=== PATIENT | female | born 1980 | race Caucasian/White ===

== ENCOUNTER → 2024-08-06 06:48 | Outpatient (REF) | payer OTHER, SELFPAY | LOC: RAD 06:48 | PROVIDERS: ATTENDING PHYSICIAN Nurse Practitioner Family; FAMILY PHYSICIAN Family Medicine | DX: Z34.90 Encounter for supervision of normal pregnancy, unspecified, unspecified trimester (principal) | CPT/HCPCS: 76801 ==

== ENCOUNTER → 2024-08-30 13:28 | Outpatient (REF) | payer OTHER, SELFPAY | LOC: PNTC 13:28 | PROVIDERS: ATTENDING PHYSICIAN Obstetrics & Gynecology | DX: Z36.0 Encounter for antenatal screening for chromosomal anomalies (principal); Z36.82 Encounter for antenatal screening for nuchal translucency | CPT/HCPCS: 36415; 76801; 76813 ==

== ENCOUNTER → 2024-10-22 14:13 | Outpatient (REF) | payer OTHER, SELFPAY | LOC: PNTC 14:13 | PROVIDERS: ATTENDING PHYSICIAN Obstetrics & Gynecology | DX: O09.529 Supervision of elderly multigravida, unspecified trimester (principal) | CPT/HCPCS: 76811; 76817 ==

== ENCOUNTER → 2024-12-06 14:44 | Outpatient (REF) | payer OTHER, SELFPAY | LOC: PNTC 14:44 | PROVIDERS: ATTENDING PHYSICIAN Obstetrics & Gynecology | DX: O09.529 Supervision of elderly multigravida, unspecified trimester (principal) | CPT/HCPCS: 76816 ==

== ENCOUNTER → 2024-12-20 09:58 | Outpatient (REF) | payer OTHER, SELFPAY | LOC: PNTC 09:58 | PROVIDERS: ATTENDING PHYSICIAN Obstetrics & Gynecology | DX: Z34.80 Encounter for supervision of other normal pregnancy, unspecified trimester (principal) | CPT/HCPCS: 36415; 86850; 86900; 86901; 96372; J2790 ==

== ENCOUNTER → 2025-01-17 14:43 | Outpatient (REF) | payer OTHER, SELFPAY | LOC: PNTC 14:43 | PROVIDERS: ATTENDING PHYSICIAN Obstetrics & Gynecology | DX: O09.529 Supervision of elderly multigravida, unspecified trimester (principal) | CPT/HCPCS: 76816 ==

== ENCOUNTER → 2025-01-31 14:41 | Outpatient (REF) | payer OTHER, SELFPAY | LOC: PNTC 14:41 | PROVIDERS: ATTENDING PHYSICIAN Obstetrics & Gynecology | DX: O09.529 Supervision of elderly multigravida, unspecified trimester (principal) | CPT/HCPCS: 59025 ==

== ENCOUNTER → 2025-02-07 14:46 | Outpatient (REF) | payer OTHER, SELFPAY | LOC: PNTC 14:46 | PROVIDERS: ATTENDING PHYSICIAN Obstetrics & Gynecology | DX: O09.529 Supervision of elderly multigravida, unspecified trimester (principal) | CPT/HCPCS: 59025; 76815 ==

== ENCOUNTER → 2025-02-14 14:36 | Outpatient (REF) | payer OTHER, SELFPAY | LOC: PNTC 14:36 | PROVIDERS: ATTENDING PHYSICIAN Obstetrics & Gynecology | DX: O09.523 Supervision of elderly multigravida, third trimester (principal) | CPT/HCPCS: 59025 ==

== ENCOUNTER → 2025-02-21 14:59 | Outpatient (REF) | payer OTHER, SELFPAY | LOC: PNTC 14:59 | PROVIDERS: ATTENDING PHYSICIAN Obstetrics & Gynecology | DX: O09.523 Supervision of elderly multigravida, third trimester (principal) | CPT/HCPCS: 59025 ==

== ENCOUNTER → 2025-02-28 14:38 | Outpatient (REF) | payer OTHER, SELFPAY | LOC: PNTC 14:38 | PROVIDERS: ATTENDING PHYSICIAN Obstetrics & Gynecology | DX: O09.523 Supervision of elderly multigravida, third trimester (principal) | CPT/HCPCS: 59025; 76815 ==

== ENCOUNTER → 2025-03-07 14:04 | Outpatient (REF) | payer OTHER, SELFPAY | LOC: PNTC 14:04 | PROVIDERS: ATTENDING PHYSICIAN Obstetrics & Gynecology | DX: O09.523 Supervision of elderly multigravida, third trimester (principal) | CPT/HCPCS: 59025 ==

== ENCOUNTER 2025-03-08 05:15 | Inpatient (IN) | payer OTHER, SELFPAY ==
[2025-03-08 05:44] VITALS: BP 122/81; BMI 23.2
[2025-03-08] MEDS: LR 1000 IV (06:05)
[2025-03-08 06:29] LABS: Hematocrit 36.9 % (37.0-47.0); Hemoglobin 13.7 g/dL (12.0-16.0); Mean Corp Hgb Conc. 37.1 g/dL (33.0-37.0); Mean Corpuscular Volume 91.3 fL (81.0-99.0); Platelet Count 146 10^3/uL (130-400); Red Cell Dist. Width 11.9 % (11.5-14.5)
[2025-03-08] MEDS: BICITRA 30 ML PO (06:59)
[2025-03-08] MEDS: TYLENOL 975 MG PO (07:00)
[2025-03-08] MEDS: CLEOCIN 50 IV (07:01)
[2025-03-08] MEDS: GENTAMICIN 58.125 MG IV (07:02)
[2025-03-08] MEDS: TORADOL 15 MG IV ×2 (15:04→20:13)
[2025-03-08] MEDS: COLACE 100 MG PO (20:14)
[2025-03-08] MEDS: BENADRYL 25 MG PO (21:58)
[2025-03-09] MEDS: TORADOL 15 MG IV ×2 (03:18→08:55)
[2025-03-09 03:29] LABS: Hematocrit 31.1 % (37.0-47.0); Hemoglobin 11.2 g/dL (12.0-16.0); Mean Corp Hgb Conc. 36.0 g/dL (33.0-37.0); Mean Corpuscular Volume 94.5 fL (81.0-99.0); Platelet Count 132 10^3/uL (130-400); Red Cell Dist. Width 12.0 % (11.5-14.5)
[2025-03-09] MEDS: PRENATAL PLUS 1 TABLET PO (08:19)
[2025-03-09] MEDS: COLACE 100 MG PO ×2 (08:19→20:30)
[2025-03-09] MEDS: RHOGAM 300 MCG IM (12:36)
[2025-03-09] MEDS: TYLENOL 650 MG PO ×3 (13:49→22:41)
[2025-03-09] MEDS: MOTRIN 600 MG PO ×2 (15:40→22:41)
--- NOTE | 2025-03-09 19:22 | W.PN.ANS.POP ---
Anesthesia Post Operative
- Anesthesia Post Op Note
Vital Signs Stable-See Nursing Note: Yes
Airway Patent: Yes
Adequate Pain Control: Yes
Change in Mental Status: No
Current Postoperative Nausea & Vomiting: No
Anesthesia Complications: No
General Anesthetic Recall: No
Unplanned Admission: No
Post Op Hydration Adequate: Yes
- -
Spoke with RN, pt doing well with no anesthesia r/t complications.
[2025-03-10] MEDS: COLACE 100 MG PO ×2 (08:05→20:12)
[2025-03-10] MEDS: MOTRIN 600 MG PO ×3 (08:05→22:35)
[2025-03-10] MEDS: PRENATAL PLUS 1 TABLET PO (08:05)
[2025-03-10] MEDS: TYLENOL 650 MG PO ×3 (08:06→22:35)
[2025-03-11] MEDS: TYLENOL 650 MG PO (05:03)
[2025-03-11] MEDS: MOTRIN 600 MG PO (05:03)
[2025-03-11] MEDS: PRENATAL PLUS 1 TABLET PO (08:12)
[2025-03-11] MEDS: COLACE 100 MG PO (08:12)
--- NOTE | 2025-03-11 11:00 | W.DS.TRANS ---
DC Summary - Reset Merchandiser
-
Discharge Instructions:
Discharge Diagnosis/Procedures 39+ wks, Segun breech presentation;
Primary low transverse section
Diet Regular
Activity No strenuous activity
Driving Restrictions No driving for 2 weeks
Bathing Restrictions OK to Shower
Instructions:
Stand-Alone Forms: LDRP Delivery
Changes to Home Medications: No
Discharge Medications:
DC Medications w/original date entered in [facility]
acetaminophen 325 mg tablet 650 mg (2 x 325 mg) PO Q4HPRN PRN mild pain #0 tabs 03/08/25
ibuprofen 600 mg tablet 600 mg PO Q6HPRN PRN cramps #0 tabs 03/08/25
prenat.vits,elina,cpe-fknq-fwnyx 1 tab PO DAILY Supplement 03/08/25
Home Medication Changes
Pending Results: Yes (placental pathology)
Total time spent discharging patient (in min): 20
[2025-03-12 11:19] LABS: Syphilis/T. pallidum Ab Reflex Negative (Negative)
== END 2025-03-11 12:42 | disposition home or self-care (01) | DRG 788 ==
LOC: LDRP 05:15
PROVIDERS: ADMITTING PHYSICIAN Obstetrics & Gynecology
PROC: 10D00Z1 Extraction of Products of Conception, Low, Open Approach (ICD-10-PCS; 2025-03-08)
PROC: 3E0334Z Introduction of Serum, Toxoid and Vaccine into Peripheral Vein, Percutaneous Approach (ICD-10-PCS; 2025-03-09)
DX: O32.1XX0 Maternal care for breech presentation, not applicable or unspecified (principal); O69.81X0 Labor and delivery complicated by cord around neck, without compression, not applicable or unspecified; Z3A.39 39 weeks gestation of pregnancy; Z37.0 Single live birth; O99.824 Streptococcus B carrier state complicating childbirth; O26.893 Other specified pregnancy related conditions, third trimester; Z67.41 Type O blood, Rh negative
CPT/HCPCS: 85027; 85461; 86780; 86850; 86870; 86900; 86901; 88307; J2790